=== PATIENT | male | born 1950 | race Caucasian/White ===

== ENCOUNTER → 2017-04-21 | Outpatient (CLI) | payer MEDICARE ==
[~2017-04-21] MED LIST: ACET-66 PO; ASPI-1197 PO; ATOR10TA PO; CLON0.5T PO; LISINOPRIL PO; MULTIVITAMIN PO; PANT40TA25 PO; TAMS-1 PO; ZOLOFT PO
== END | disposition home or self-care (01) ==
LOC: RAH 14:51
PROVIDERS: ATTEND Internal Medicine
DX: Z01.811 Encounter for preprocedural respiratory examination (principal); I10 Essential (primary) hypertension
CPT/HCPCS: 71046

== ENCOUNTER → 2017-12-01 | Outpatient (CLI) | payer MEDICARE | END | disposition home or self-care (01) | LOC: RAH 15:53 | PROVIDERS: ATTEND Internal Medicine | DX: R22.41 Localized swelling, mass and lump, right lower limb (principal) | CPT/HCPCS: 93971 ==

== ENCOUNTER → 2018-04-16 | Outpatient (CLI) | payer MEDICARE ==
[~2018-04-16] MED LIST changes: -ACET-66 PO; -CLON0.5T PO; +GABA-533 PO; +LEVO5TAB29 PO; +TRAM50TA4 PO
== END | disposition home or self-care (01) ==
LOC: RAH 10:01
PROVIDERS: ATTEND Neurological Surgery
DX: M47.812 Spondylosis without myelopathy or radiculopathy, cervical region (principal); M43.22 Fusion of spine, cervical region
CPT/HCPCS: 72040

== ENCOUNTER → 2018-11-06 | Outpatient (CLI) | payer MEDICARE | END | disposition home or self-care (01) | LOC: RAH 14:59 | PROVIDERS: ATTEND Physical Medicine & Rehabilitation | DX: M54.2 Cervicalgia (principal) | CPT/HCPCS: 72141 ==

== ENCOUNTER → 2019-06-26 | Outpatient (CLI) | payer MEDICARE | END | disposition home or self-care (01) | LOC: RAH 14:38 | PROVIDERS: ATTEND Physical Medicine & Rehabilitation | DX: M16.0 Bilateral primary osteoarthritis of hip (principal) | CPT/HCPCS: 73521 ==

== ENCOUNTER → 2022-01-19 | Outpatient (CLI) | payer MEDICARE ==
[~2022-01-19] MED LIST changes: -PANT40TA25 PO; +PANT40TA54 PO
== END | disposition home or self-care (01) ==
LOC: RAH 14:32
PROVIDERS: ATTEND Physician Assistant
DX: M16.12 Unilateral primary osteoarthritis, left hip (principal); M25.552 Pain in left hip
CPT/HCPCS: 73502

== ENCOUNTER → 2023-02-02 | Outpatient (CLI) | payer MEDICARE ==
[~2023-02-02] MED LIST changes: -GABA-533 PO; +GABA-534 PO; +LIDOCAINE HCL 4% LTA SOL 4 ML VIAL TP ONE
== END | disposition home or self-care (01) ==
LOC: WHH 09:36
PROVIDERS: ATTEND Nurse Practitioner Family
DX: R21 Rash and other nonspecific skin eruption (principal); L30.9 Dermatitis, unspecified; I10 Essential (primary) hypertension; J44.9 Chronic obstructive pulmonary disease, unspecified; I48.0 Paroxysmal atrial fibrillation; Z85.46 Personal history of malignant neoplasm of prostate; Z90.49 Acquired absence of other specified parts of digestive tract; Z87.891 Personal history of nicotine dependence
CPT/HCPCS: G0463

== ENCOUNTER → 2023-02-09 | Outpatient (CLI) | payer MEDICARE ==
[~2023-02-09] MED LIST changes: -LIDOCAINE HCL 4% LTA SOL 4 ML VIAL TP ONE
== END | disposition home or self-care (01) ==
LOC: WHH 08:57
PROVIDERS: ATTEND Nurse Practitioner Family
DX: R21 Rash and other nonspecific skin eruption (principal); L30.9 Dermatitis, unspecified; I10 Essential (primary) hypertension; J44.9 Chronic obstructive pulmonary disease, unspecified; I48.0 Paroxysmal atrial fibrillation; Z85.46 Personal history of malignant neoplasm of prostate; Z90.49 Acquired absence of other specified parts of digestive tract; Z87.891 Personal history of nicotine dependence; Z79.899 Other long term (current) drug therapy
CPT/HCPCS: G0463

== ENCOUNTER 2023-02-16 09:26 | Outpatient (CLI) | payer MEDICARE | END 2023-02-16 13:53 | disposition home or self-care (01) | LOC: WHH 09:26 | PROVIDERS: ATTEND Nurse Practitioner Family | DX: R21 Rash and other nonspecific skin eruption (principal); I10 Essential (primary) hypertension; I48.0 Paroxysmal atrial fibrillation; C61 Malignant neoplasm of prostate; J44.9 Chronic obstructive pulmonary disease, unspecified; Z90.49 Acquired absence of other specified parts of digestive tract; Z87.891 Personal history of nicotine dependence; Z79.899 Other long term (current) drug therapy | CPT/HCPCS: G0463 ==

== ENCOUNTER → 2023-09-11 | Outpatient (CLI) | payer MEDICARE ==
[~2023-09-11] MED LIST changes: +IOHEXOL 350 MG/ML 100ML INFUS..BTL IV ONE
== END | disposition home or self-care (01) ==
LOC: RAH 11:06
PROVIDERS: ATTEND Internal Medicine Cardiovascular Disease
DX: R06.02 Shortness of breath (principal); M47.815 Spondylosis without myelopathy or radiculopathy, thoracolumbar region
CPT/HCPCS: 75574; Q9967

== ENCOUNTER → 2023-12-29 | Outpatient (CLI) | payer MEDICARE ==
[~2023-12-29] MED LIST changes: -IOHEXOL 350 MG/ML 100ML INFUS..BTL IV ONE
--- NOTE | 2023-12-29 14:17 | HMCIMG ---
HIP UNILAT 2-3VW LEFT HISTORY: Left hip pain COMPARISON: 01/19/2022 TECHNIQUE: 3 images of left hip were obtained. FINDINGS: Bilateral hip joint space narrowing is seen. Vascular calcifications are seen. There is no acute displaced fracture or dislocation. Degenerative changes are seen. IMPRESSION: 1. Findings as described above.
--- NOTE | 2023-12-29 14:18 | HMCIMG ---
LUMBAR SPINE 2-3VWS HISTORY: Low back pain COMPARISON: None FINDINGS: 4 images of lumbar spine were obtained. Disc space narrowings are seen at L1-2, L2-3, L4-5 and L5-S1 levels. There is straightening of normal lordotic curvature which may be related to muscle spasm or positioning. No loss of vertebral height is seen. No fracture or dislocation is seen. Degenerative changes are seen. IMPRESSION: 1. No fracture is seen. DJD.
== END | disposition home or self-care (01) ==
LOC: RAH 11:27
PROVIDERS: ATTEND Physician Assistant
DX: M16.12 Unilateral primary osteoarthritis, left hip (principal); M47.816 Spondylosis without myelopathy or radiculopathy, lumbar region; M48.061 Spinal stenosis, lumbar region without neurogenic claudication; M25.552 Pain in left hip
CPT/HCPCS: 72100; 73502

== ENCOUNTER 2024-11-13 06:56 | Inpatient (IN) | payer MEDICARE ==
[2024-11-12 10:19] LABS: IMMATURE GRANULOCYTE ABSOLUTE 0.02 K/uL (0-1); NUCLEATED RED BLOOD CELLS 0.0 % (0.0-0.19); PLATELET COUNT (AUTO) 207 K/uL (130-400); RED BLOOD CELL COUNT(AUTO) 4.13 MIL/uL (4.50-6.20); RED CELL DISTRIBUTION WIDTH 13.2 % (11.0-15.5); WHITE BLOOD COUNT (AUTO) 8.5 K/uL (4.8-10.8)
[2024-11-12 10:25] LABS: CREATININE 1.0 mg/dL (0.5-1.3); GLOMERULAR FILTR. RATE CALC 78.0 mL/min (>90); GLUCOSE,RANDOM 87.0 mg/dL (70-105); SODIUM SERUM 144.0 mmol/L (136-145); UREA NITROGEN, BLOOD 22.0 mg/dL (7-18)
[2024-11-12 10:28] LABS: INR 0.95 (0.85-1.15)
[2024-11-12 10:30] VITALS: BP 119/59; PULSE 72; RESP 18; TEMP 97.6
--- NOTE | 2024-11-12 10:50 | NUR ---
RE: IS INITIAL IS INITIAL TEACHING DONE BY RT ANSON DURING PREOP.
[~2024-11-13] VITALS: Ht 180.3 cm; Wt 63.0 kg
[2024-11-13] VITALS (20 sets, daily range): BP systolic 93–113; BP diastolic 45–58; PULSE 71–84; RESP 12–19; TEMP 96.8–97.9; O2SAT 96
[~2024-11-13 06:56] MED LIST changes: +AMLO2.5T4 PO; +APIX5TAB PO; -ASPI-1197 PO; -ATOR10TA PO; +BACL10TA PO; +FINA5TAB41 PO; +FLEC50TA3 PO; -GABA-534 PO; -LEVO5TAB29 PO; -LISINOPRIL PO; +METO25 PO; +MIRT-22 PO; -MULTIVITAMIN PO; +OMEP20CA12 PO; -PANT40TA54 PO; +ROSU5TAB51 PO; +SERT-440 PO; -TAMS-1 PO; +TERA2CAP4 PO; -TRAM50TA4 PO; -ZOLOFT PO
[2024-11-13] MEDS ORDERED: LIDOCAINE PF 100MG/5ML (2%) SYRINGE 5ML ONE (07:35)
[2024-11-13] MEDS ORDERED: SUCCINYLCHOLINE CHLORIDE 20 MG/ML 10 ML VIAL ONE (07:36)
[2024-11-13] MEDS ORDERED: NEOSTIGMINE METHYLSULFATE 1MG/ML IV ONE (07:36)
[2024-11-13] MEDS ORDERED: GLYCOPYRROLATE 0.2 MG/ML 5 ML VIAL ONE (07:36)
[2024-11-13] MEDS ORDERED: MIDAZOLAM HCL 1 MG/ML 2ML VIAL ONE (07:37)
[2024-11-13] MEDS ORDERED: PoTASSium chloRIDE 20MEQ ER 20 MEQ ERTAB PO PRN (08:00)
[2024-11-13] MEDS ORDERED: PoTASSium chl 10% ELIXIR 20MEQ 20 MEQ/15 ML UDCUP PO PRN (08:00)
[2024-11-13] MEDS ORDERED: HYDROcodone/APAP 5/325 1 TAB TABLET PO PRN (08:00)
[2024-11-13] MEDS ORDERED: FERROUS FUMARATE 324 MG TABLET PO PRN (08:00)
[2024-11-13] MEDS ORDERED: TRANEXAMIC ACID 1000MG/10ML ONE (08:02)
[2024-11-13] MEDS: LACTATED RINGERS 1000ML 1,000 ML IV ONE (08:09)
[2024-11-13] MEDS: SUGAMMADEX SODIUM 200 MG/2 ML VIAL IV ONE (08:18)
[2024-11-13] MEDS: FAMOTIDINE 20MG VIAL IV ONE (08:19)
[2024-11-13] MEDS ORDERED: ALBUMIN (HUMAN) 5% 500 ML IV ONE (08:31)
--- NOTE | 2024-11-13 10:20 | NUR ---
MARIA EUGENIA CM MET WITH PT AND HAILEY MAGDALENO THIS AFTERNOON, INITIAL ASSESSMENT DONE. PATIENT IS INDEPENDENT PRIOR TO SURGERY, LIVES AT HOME WITH HIS . AT HOME PATIENT HAS A SHOWER CHAIR, [place], BPM, GOES TO [facility] IN [place] AND [facility]. DENIES ANY OTHER EQUIPMENT/SERVICES. FEELS SAFE TO GO BACK HOME, STILL DRIVE, ABLE TO ASSIST WITH TRANSPORTATION AND NEEDS NECESSARY. DISCUSSED POSSIBLE HOME W/HH FOR PT VS SHORT TERM REHAB AT SNF PENDING MD RECOMMENDATIONS. PT AND AGREEABLE TO BOTH IF NEEDED, VERBALIZED IT MIGHT BE DIFFICULT FOR HER TO ASSIST PT AT HOME IF HE GOES HOME IF PT NEED WOULD LIKE FOR PT TO TRY SNF FOR REHAB, PT AGREEABLE W/. CONSENT SIGNED [facility] FOR [facility] HH/ANY IN [facility]. MARIA EUGENIA HOME W/HH VS SNF. CM TO CONTINUE TO FOLLOW UP. Addendum: 11/13/24 at 1434 by BOBBY BENOIT LVN CM Amended: Links added.
--- NOTE | 2024-11-13 11:23 | OP ---
Operative Note: DATE OF PROCEDURE: 11/13/24 SURGEON: JULISA DUFFY MD METAL FURNITURE ASSEMBLER: Janneth Zendejas ANESTHESIA: General and fascia iliaca block ANESTHESIOLOGIST/PRESS OPERATOR PRINTING: Geo Blanco PREOPERATIVE DIAGNOSIS: Left hip osteoarthritis POSTOPERATIVE DIAGNOSIS: Left hip osteoarthritis PROCEDURE: Left total hip arthroplasty ESTIMATED BLOOD LOSS: 150 cc INDICATIONS: 74-year-old male with left hip osteoarthritis failing conservative management. After discussion of the risks, benefits, and alternatives, the patient voluntarily agreed to undergo the aforementioned procedure. IMPLANTS: Moss and Nephew 54 mm R3 acetabular component with 6.5 mm screws x2 and central hole cover, 0 degree XLPE polyethylene liner, size 8 standard offset anthology stem with a 36 mm Oxinium +0 head DESCRIPTION OF PROCEDURE: Patient was properly identified in the preoperative holding area. Surgical site marking was verified and surgery consent reviewed. The patient was then taken to the operating room and placed in supine position on the OR table. After induction of general anesthesia, preoperative antibiotics were given. The patient was then transitioned in the lateral decubitus position with the left side up. All bony prominences were well-padded. Left lower extremity was then prepped and draped in the usual sterile fashion. Surgical time out was done verifying correct surgery, side, site, and location to be performed. We then began the procedure by making approximately 15 cm long incision centered over the greater trochanter. Here we came sharply through skin down to the fascia. Hemostasis was then achieved using Bovie electrocautery. We then incised fascia in line with the skin incision and finger split the tensor muscle proximally. We then placed our Charnley retractor. At this point we identified the vastus ridge and began elevating the full-thickness soft tissue flap off of the vastus ridge, splitting the vastus lateralis and gluteus muscles as necessary. We then proceeded to externally rotate the femur while making this flap. We resected part of the anterior capsule. The femoral head and neck was then delivered into view. We then dislocated the hip and performed a femoral neck cut approximately half a fingerbreadth proximal to the lesser trochanter. We then placed our retractors around the superior and anterior portion of the acetabulum and began to remove the labrum circumferentially. We then began reaming the acetabulum where we reamed up to a size 53 ensuring appropriate anteversion and abduction. We then proceeded to trial with the size 54 acetabular component and this appeared to sit well. We opened our size 54 acetabular component and after irrigating out the wound malleted this into place. It appeared to have good press-fit however we elected to place 2 of the 6.5 screws as well. We drilled and filled the screws in standard fashion in the posterior superior portion of the cup. We then placed the manhole cover on the center of the cup. The wound was thoroughly irrigated out further and we placed the acetabular liner and impacted this in place in standard fashion. We then proceeded to reposition our retractors to elevate the proximal femur out of the wound. We then used the box chisel and canal finder to began preparing the femoral side and sequentially broached up to the aforementioned size stem. Once we felt we had good fit, fill, and control of the femur with the stem in place we then used our trial head component and reduce the hip. Upon reduction, we had appropriate soft tissue tensioning, limb length and stable range of motion. We therefore dislocated the hip once more removed our trial components thoroughly irrigated the out the wound and placed our final components in standard fashion. The hip was then reduced with the final components in place. It was found to be stable through range of motion with appropriate soft tissue tensioning and appropriate limb length. At this point we placed a bump under the knee and the foot on the male with a stack of towels to allow for internal rotation. We repaired the abductors back to the greater trochanter using #5 Ethibond. We then repaired the rent in the vastus lateralis and gluteus muscles using #1 Vicryl in a running fashion. We removed our Charnley retractor and began to repair the IT band using #1 Vicryl in interrupted [id number] fashion. At this point we began to close her subcutaneous tissue using 2-0 Vicryl. Running 3-0 Monocryl in subcuticular fashion with Dermabond placed over this for the skin. Island barrier dressing was then applied. Patient was returned to supine position, awakened from anesthesia, and taken to the recovery room in stable condition. JULISA DUFFY MD Nov 13, 2024 11:23
--- NOTE | 2024-11-13 13:00 | HMCIMG ---
EXAM: CR left Hip with AP pelvis, 3 View. CLINICAL HISTORY: S/P HIP SURGERY; COMPARING RT vs LT COMPARISON: None provided. FINDINGS: BONES: No definite evidence for hardware failure or loosening.Total left hip arthroplasty. Alignment of the prosthetic components within normal limits. No definite evidence for hardware failure or loosening. No periprosthetic fractures. No acute fractures about the pelvis or hips. JOINTS: Osteoarthritic changes of the right hip with acetabular joint space narrowing and mild increase sclerosis upon the superior lateral aspect of the acetabulum. Total left hip arthroplasty. SOFT TISSUES: The soft tissues are unremarkable. IMPRESSION: Left hip arthroplasty appears stable. Negative for fracture or other acute bony abnormality. /[place]
--- NOTE | 2024-11-13 13:05 | NUR ---
RECEIVED PATIENT INTO ROOM 405 , AWAKE ALERT AND ORIENTED, DRESSING NOTED TO LT HIP OPTIFOAM DRY AND INTACT IC PACK APPLIED LEFT LOWER EXTREMITY WITH PEDAL PULSE PALPABLE ,ABLE TO WIGGLE TOES SENSATION TO FOOT INTACT. SCD APPLIED TO LOWER EXTREMITIES, AT BEDSIDE, REEDUCATED PATIENT ON USE OF INCENTIVE SPIROMETRY ABLE TO DRAW 1500 AT THIS TIME IN IS.INSTRUCTED PHYSICAL THERAPY WILL BE HERE SHORTLY TO ASSIST OUT OF BED .PATIENT DENIES PAIN AT THIS TIME.INFORMED PAIN MEDICATION IS AVAILABLE NEEDED,PATIENT VERBALIZED UNDERSTANDING.
--- NOTE | 2024-11-13 13:52 | NUR ---
PATIENT NOTED WITH BP 86/49 WITH PAIN RATED AT 8/10. INFORMED SANNA, NURSE. CANNOT GIVE PAIN MEDS AT THIS TIME DUE TO BP CONCERNS. WILL BOLUS WITH NS. PT TO CHECK BACK. Addendum: 11/13/24 at 1353 by JORDEN HALLMAN PT Amended: Links added.
[2024-11-13] MEDS: 0.9%NACL 1000ML 1,000 ML IV SCH (14:21)
[2024-11-13] MEDS ORDERED: BACLOFEN 10 MG TABLET PO PRN (15:00)
--- NOTE | 2024-11-13 15:50 | NUR ---
ORTHO COORDINATOR: TEACHING REGARDING DVT AND PNEUMONIA PREVENTION, PAIN EXPECTATIONS AND PAIN MANAGEMENT. PATIENT IN BED, SPOUSE AT BEDSIDE. B SCD SLEEVES IN PLACE AND FUNCTIONING. INCENTIVE SPIROMETER AT BEDSIDE. PATIENT VERBALIZED PROPER FREQUENCY OF INCENTIVE SPIROMETER USE. PATIENT RETURN DEMONSTRATED PROPER FOOT FLEXION AND EXTENSION EXERCISES. REVIEWED PAIN MANAGEMENT STRATEGY. PATIENT INSTRUCTED TO PERFORM SELF PAIN EVALUATIONS AT THE MINIMUM EVERY FOUR HOURS. PATIENT INTENDS TO DISCHARGE HOME WITH HOME HEALTH PHYSICAL THERAPY, SPOUSE WOULD LIKE TO DISCUSS REHAB, SHE HAS HAD TWO SHOULDER SURGERIES AND IS CURRENTLY IN A BOOT ON THE LEFT LEG. DIFFERENCES BETWEEN OPTIONS DISCUSSED. REVIEWED CRITERIA TO DISCHARGE FROM HOSPITAL. SET EXPECTATION FOR PATIENT TO SHOWER TOMORROW, RATIONALE PROVIDED. PATIENT AND SPOUSE VERBALIZED UNDERSTANDING TO ALL INSTRUCTIONS. NO ADDITIONAL QUESTIONS OR CONCERNS AT THIS TIME. PATIENT PAIN HAS BEEN ADDRESSED BY PRIMARY NURSE. ICE PACKS PLACED TO SURGICAL SITE.
--- NOTE | 2024-11-13 19:30 | NUR ---
assessment/teaching patient awake,alert, ox3, no family at bedside, encourage deep breathing exercises and is as previously done with maximum volume inspiration of 2000, ivf infusing well, left hip optifoam d/i, ble scds in place, teach patient plan of care, pain management and expected outcome, patient verbalizes understanding via teach back
[2024-11-13] MEDS: HYDROcodone/APAP 5/325 1 TAB TABLET PO PRN (20:49)
[2024-11-13] MEDS: FLECAINIDE ACETATE 25 MG PO SCH (20:53)
[2024-11-13] MEDS: TERAZOSIN 2 MG CAPSULE PO SCH (20:53)
[2024-11-13] MEDS: amLODIPine 2.5 MG TAB PO SCH (20:54)
[2024-11-14 00:52] VITALS: BP 106/50; PULSE 78; RESP 18; TEMP 98
[2024-11-14 03:50] VITALS: BP 99/52; PULSE 82; RESP 17; TEMP 97.6
[2024-11-14 04:40] LABS: NUCLEATED RED BLOOD CELLS 0.0 % (0.0-0.19); PLATELET COUNT (AUTO) 181.0 K/uL (130-400); RED BLOOD CELL COUNT(AUTO) 3.11 MIL/uL (4.50-6.20); RED CELL DISTRIBUTION WIDTH 13.1 % (11.0-15.5); WHITE BLOOD COUNT (AUTO) 14.1 K/uL (4.8-10.8)
[2024-11-14 04:50] LABS: CREATININE 0.9 mg/dL (0.5-1.3); GLOMERULAR FILTR. RATE CALC 89.0 mL/min (>90); GLUCOSE,RANDOM 133.0 mg/dL (70-105); SODIUM SERUM 144.0 mmol/L (136-145); UREA NITROGEN, BLOOD 18.0 mg/dL (7-18)
[2024-11-14 08:00] VITALS: BP 119/54; PULSE 90; RESP 18; TEMP 98.1
--- NOTE | 2024-11-14 08:00 | NUR ---
OOB PATIENT ASSISTED UP TO BATHROOM WITH USE OF WALKER STEADY GAIT NOTED PATIENT VOIDED AND ASSISTED BACK TO CHAIR FOR BREAKFAST, REINSTRUCTED TO CONTINUE TO USE INCENTIVE SPIROMETRY.
--- NOTE | 2024-11-14 08:11 | PN ---
Ortho postop day one. This morning the patient is already out of bed seated in the chair. He is complaining of some slight numbness to the inner part of his thigh ring judging from the groin down to just past his knee. He is able though to actively extend and flex his knee dorsiflex and plantar flex foot and wiggle toes upon command. I have discussed with the patient that this is likely still due to the block and to continue to observe. He has been able to to stand and walk to the restroom without any difficulty. I have asked for him to stop rubbing on the site as he can irritate his skin. Patient states that he feels funny. We discussed gabapentin for this condition but he refuses states that he can not tolerate the side effects. His is present at the bedside she is still concerned that she will not be able to handle him at home and would prefer that case management continue to pursue skilled nurse facility. Vital signs have been stable. He is afebrile. Laboratory results reviewed. Hemoglobin hematocrit low we will continue to observe treat per protocol as necessary. Voiding on his own without difficulty although complains that he does not like that the nursing staff have to accompany him to the restroom. He is not passing gas yet. Reinforced incentive spirometry. Dressing is intact. PT pending this morning. Assessment: Status post left total hip arthroplasty. Acute postoperative blood loss anemia. Plan: Continue Dr. Charles's total hip arthroplasty protocol and discharge planning. Acute postoperative blood loss anemia addressed with the protocol as necessary Vitals/Labs Vital Signs Date Time Temp Pulse Resp B/P (MAP) Pulse Ox O2 Delivery O2 Flow Rate FiO2 11/14/24 03:50 97.5 82 17 99/52 96 Room Air 11/13/24 20:00 0 21 Laboratory Tests 11/14/24 04:24 Medications Current Medications Cefazolin Sodium 2 gm STK-MED ONCE .ROUTE; Start 11/13/24 at 07:02; Stop 11/13/24 at 07:02; Status DC Lactated Ringer's 1,000 ml @ As Directed STK-MED ONCE IV Last administered on 11/13/24at 08:09; Start 11/13/24 at 07:02; Stop 11/13/24 at 07:02; Status DC Lidocaine HCl 100 mg STK-MED ONCE .ROUTE; Start 11/13/24 at 07:35; Stop 11/13/24 at 07:36; Status DC Ondansetron HCl 4 mg STK-MED ONCE .ROUTE; Start 11/13/24 at 07:35; Stop 11/13/24 at 07:36; Status DC Dexamethasone Sodium Phosphate 10 mg STK-MED ONCE .ROUTE; Start 11/13/24 at 07:35; Stop 11/13/24 at 07:36; Status DC Succinylcholine Chloride 200 mg STK-MED ONCE .ROUTE; Start 11/13/24 at 07:36; Stop 11/13/24 at 07:36; Status DC Glycopyrrolate 1 mg STK-MED ONCE .ROUTE; Start 11/13/24 at 07:36; Stop 11/13/24 at 07:36; Status DC Propofol 200 mg STK-MED ONCE IV; Start 11/13/24 at 07:36; Stop 11/13/24 at 07:36; Status DC Neostigmine Methylsulfate 10 mg STK-MED ONCE IV; Start 11/13/24 at 07:36; Stop 11/13/24 at 07:36; Status DC Rocuronium [place] 50 mg STK-MED ONCE .ROUTE; Start 11/13/24 at 07:36; Stop 11/13/24 at 07:36; Status DC Fentanyl Citrate 100 mcg STK-MED ONCE .ROUTE; Start 11/13/24 at 07:36; Stop 11/13/24 at 07:36; Status DC Midazolam HCl 2 mg STK-MED ONCE .ROUTE; Start 11/13/24 at 07:37; Stop 11/13/24 at 07:37; Status DC Ephedrine Sulfate 50 mg STK-MED ONCE .ROUTE; Start 11/13/24 at 07:40; Stop 11/13/24 at 07:40; Status DC Sodium Chloride 1,000 ml @ 100 mls/hr Q10H IV Last administered on 11/14/24at 01:41; Start 11/13/24 at 08:00; Stop 11/14/24 at 07:59; Status DC Polyethylene Glycol 17 gm DAILY PO; Start 11/13/24 at 09:00; Stop 12/13/24 at 08:59 Bisacodyl 10 mg DAILY PRN RC; Start 11/16/24 at 08:00; Stop 12/16/24 at 07:59 Ketorolac Tromethamine 15 mg Q6H PRN IV; Start 11/13/24 at 08:00; Stop 11/18/24 at 07:59 Ferrous Fumarate 324 mg DAILY PRN PO; Start 11/13/24 at 08:00; Stop 12/13/24 at 07:59 Calcium Carbonate 500 mg Q12H PRN PO; Start 11/13/24 at 08:00; Stop 12/13/24 at 07:59 Ondansetron HCl 4 mg Q6H PRN IVP; Start 11/13/24 at 08:00; Stop 12/13/24 at 07:59 Cefazolin Sodium 2 gm Q8H IVP; Start 11/13/24 at 13:00; Stop 11/13/24 at 18:11; Status DC Gabapentin 100 mg TID PO; Start 11/13/24 at 09:00; Stop 12/13/24 at 08:59 Cyclobenzaprine HCl 5 mg Q8H PRN PO; Start 11/13/24 at 08:00; Stop 12/13/24 at 07:59 Docusate Sodium 100 mg BID PO Last administered on 11/13/24at 20:48; Start 11/13/24 at 09:00; Stop 12/13/24 at 08:59 Ketorolac Tromethamine 15 mg Q8H IV Last administered on 11/14/24at 00:13; Start 11/13/24 at 08:00; Stop 11/14/24 at 00:01; Status DC Aspirin 325 mg DAILY PO; Start 11/14/24 at 09:00; Stop 12/14/24 at 08:59 Potassium Chloride 100 ml @ 100 mls/hr AD PRN IV; Start 11/13/24 at 08:00; Stop 12/13/24 at 07:59 Potassium Chloride 20 meq AD PRN PO; Start 11/13/24 at 08:00; Stop 12/13/24 at 07:59 Potassium Chloride 20 meq AD PRN PO; Start 11/13/24 at 08:00; Stop 12/13/24 at 07:59 Tramadol HCl 50 mg Q6H PRN PO; Start 11/13/24 at 08:00; Stop 11/18/24 at 07:59 Acetaminophen/ Hydrocodone Bitart Q4H PRN PO; Start 11/13/24 at 08:00; Stop 11/13/24 at 08:01; Status DC Acetaminophen/ Hydrocodone Bitart 1 tab Q4H PRN PO Last administered on 11/13/24at 20:49; Start 11/13/24 at 08:30; Stop 11/18/24 at 08:29 Acetaminophen/ Hydrocodone Bitart 2 tab Q4H PRN PO; Start 11/13/24 at 08:30; Stop 11/18/24 at 08:29 Tranexamic Acid 1,000 mg STK-MED ONCE .ROUTE; Start 11/13/24 at 08:02; Stop 11/13/24 at 08:02; Status DC Cefazolin Sodium 1 gm STK-MED ONCE .ROUTE; Start 11/13/24 at 08:02; Stop 11/13/24 at 08:02; Status DC Acetaminophen 100 ml @ As Directed STK-MED ONCE .ROUTE; Start 11/13/24 at 08:19; Stop 11/13/24 at 08:19; Status DC Famotidine 20 mg STK-MED ONCE IV; Start 11/13/24 at 08:19; Stop 11/13/24 at 08:19; Status DC Ropivacaine 150 mg STK-MED ONCE .ROUTE; Start 11/13/24 at 08:31; Stop 11/13/24 at 08:31; Status DC Albumin Human 500 ml @ As Directed STK-MED ONCE IV; Start 11/13/24 at 08:31; Stop 11/13/24 at 08:31; Status DC Ketamine HCl 50 mg STK-MED ONCE .ROUTE; Start 11/13/24 at 08:34; Stop 11/13/24 at 08:34; Status DC Rocuronium [place] 50 mg STK-MED ONCE .ROUTE; Start 11/13/24 at 09:35; Stop 11/13/24 at 09:35; Status DC Cefazolin Sodium 1 gm STK-MED ONCE IRRIG Last administered on 11/13/24at 08:48; Start 11/13/24 at 08:48; Stop 11/13/24 at 10:11; Status DC Cefazolin Sodium 1 gm STK-MED ONCE IRRIG Last administered on 11/13/24at 08:48; Start 11/13/24 at 08:48; Stop 11/13/24 at 10:11; Status DC Cefazolin Sodium 1 gm STK-MED ONCE IRRIG Last administered on 11/13/24at 08:48; Start 11/13/24 at 08:48; Stop 11/13/24 at 10:11; Status DC Cefazolin Sodium 2 gm STK-MED ONCE IVPB Last administered on 11/13/24at 09:12; Start 11/13/24 at 09:12; Stop 11/13/24 at 10:11; Status DC Phenylephrine HCl 10 mg STK-MED ONCE IV; Start 11/13/24 at 10:55; Stop 11/13/24 at 10:55; Status DC Fentanyl Citrate 100 mcg STK-MED ONCE .ROUTE Last administered on 11/13/24at 12:22; Start 11/13/24 at 12:19; Stop 11/13/24 at 12:19; Status DC Amlodipine Besylate 2.5 mg BID PO; Start 11/13/24 at 21:00; Stop 12/13/24 at 20:59 Baclofen 10 mg BID PRN PO; Start 11/13/24 at 15:00; Stop 12/13/24 at 14:59 Finasteride 5 mg HS PO Last administered on 11/13/24at 20:48; Start 11/13/24 at 21:00; Stop 12/13/24 at 20:59 Metoprolol Tartrate 25 mg BID PO; Start 11/13/24 at 21:00; Stop 12/13/24 at 20:59 Mirtazapine 15 mg HS PO; Start 11/13/24 at 21:00; Stop 12/13/24 at 20:59 Terazosin HCl 4 mg HS PO; Start 11/13/24 at 21:00; Stop 12/13/24 at 20:59 Home Med BID PO; Start 11/13/24 at 21:00; Stop 12/13/24 at 20:59 Pantoprazole Sodium 20 mg DAILY PO; Start 11/14/24 at 09:00; Stop 12/14/24 at 08:59 Atorvastatin Calcium 20 mg HS PO Last administered on 11/13/24at 20:48; Start 11/13/24 at 21:00; Stop 12/13/24 at 20:59 Sertraline HCl 100 mg DAILY PO; Start 11/14/24 at 09:00; Stop 12/14/24 at 08:59 Cefazolin Sodium 2 gm Q8H IVP Last administered on 11/14/24at 01:41; Start 11/13/24 at 18:30; Stop 11/14/24 at 02:31; Status DC ALFONSO HOLLIS PARTS IDENTIFICATION TECHNICIAN Nov 14, 2024 08:11
[2024-11-14] MEDS: ASPIRIN 325MG EC TAB PO SCH (09:46)
[2024-11-14 12:00] VITALS: BP 101/56; PULSE 83; RESP 18; TEMP 98.4
[2024-11-14] MEDS: HYDROcodone/APAP 5/325 1 TAB TABLET PO PRN (13:17)
--- NOTE | 2024-11-14 14:45 | NUR ---
ORTHO COORDINATOR: REINFORCED TEACHING. PATIENT IN BED, SPOUSE AT BEDSIDE. ICE PACK TO SURGICAL SITE. B SCD SLEEVES INTACT AND FUNCTIONING. PATIENT REPORTS PAIN CONTROLLED, VERBALIZED FREQUENCY OF USE OF INCENTIVE SPIROMETER. PATIENT REPORTS BOWEL MOVEMENT TODAY. REINFORCED PAIN MANAGEMENT STRATEGY. SET EXPECTATION FOR PATIENT TO SHOWER TODAY. PATIENT AND VERBALIZED UNDERSTANDING.
[2024-11-14 16:30] VITALS: BP 113/60; PULSE 74; RESP 16; TEMP 98
[2024-11-14 20:00] VITALS: BP 116/57; PULSE 78; RESP 16; TEMP 98.3
[2024-11-14] MEDS: CALCIUM CARB 500MG PO PRN (20:03)
[2024-11-15] VITALS (9 sets, daily range): BP systolic 100–139; BP diastolic 49–76; PULSE 72–96; RESP 16–18; TEMP 98–98.8; O2SAT 94–95
--- NOTE | 2024-11-15 16:20 | HMCIMG ---
Intraoperative fluoroscopic assessment of the left hip INDICATION: Left hip surgery COMPARISON: None available Fluoroscopy time: 17 seconds. FINDINGS: 6 images demonstrate patient undergoing total left hip arthroplasty. IMPRESSION: Details of the finding in the operative notes.
[2024-11-15] MEDS: CYCLOBENZAPRINE HCL 10 MG TABLET PO PRN (21:00)
--- NOTE | 2024-11-16 01:28 | NUR ---
nurse note patient alert and oriented times 3. he is hard of hearing. plan of care discussed with him and he verbalized understanding. patient calls for assistance to the restroom to void. he uses the walker and has no issues. he has intermittent left hip pain relieved by pain medication. patient has slept about 6 hours tonight. scd's on, ice packs applied, call light within reach, bed alarm on, 2 side rails up. will continue to monitor patient.
[2024-11-16 03:29] VITALS: BP 120/62; PULSE 82; RESP 16; TEMP 98.7
--- NOTE | 2024-11-16 06:27 | NUR ---
CHAIR we took the patient to the toilet to have a bowel movement. he will shower and then sit on the chair today with a new ice pack and scd's on.
[2024-11-16 08:00] VITALS: BP 99/45; PULSE 80; RESP 18; TEMP 98.4
[2024-11-16 08:01] VITALS: O2SAT 97
--- NOTE | 2024-11-16 08:04 | NUR ---
NURSE NOTE HELD PT 0900 BP MEDS METOPROLOL AND NORVASC FOR REASSESSED BP OF 99/45. WILL CONTINUE TO MONITOR.
[2024-11-16 12:00] VITALS: BP 100/51; PULSE 76; RESP 16; TEMP 98
--- NOTE | 2024-11-16 13:21 | DS ---
Discharge Summary Hospital Course Summary: The patient was admitted to the hospital postoperatively on 11/13/2024 after undergoing left total hip arthroplasty. They did well with routine postoperative pain control. They worked well with physical therapy. They developed some acute blood loss anemia but remained asymptomatic. The hospital course was otherwise uncomplicated. They were subsequently able to be discharged on postoperative day 3 once discharge arrangements were made with correction facility in three midnight requirement was met. Zipper Lining Folder(s): none Procedure(s): Left total hip arthroplasty, 11/13/2024 Assessment/Plan: Hypotension today, blood pressure medication held, other vital signs stable and afebrile. A chair at the time of my visit tent finisher no acute distress, alert and oriented x3 Nonlabored breathing Left lower extremity: -surgical dressing clean dry and intact, removed and incision is clean dry and intact -no significant edema, no erythema or warmth. No palpable fluctuance -vascularly intact distally with dorsiflexion of the ankle ASSESSMENT: Status post left total hip arthroplasty doing well Asymptomatic acute blood loss anemia PLAN: Discharge instructions Discharge Instructions: Begin working with physical therapy at the facility. Remembered do not flex the hip more than 90 and do not cross midline at the knees or ankles for the 1st six weeks. If you are side sleeper place a pillow between the knees and ankles to prevent the legs from crossing. Dressing may be removed 11/16/2024 and left open to air. Showers ok allowing soap and water to run over the wound. Pat dry. Do not submerge wound in tub/pool. Do not apply ointments. Do not apply Betadine. Do not apply peroxide. Ice packs to decrease pain/swelling. Prescriptions have been sent to the pharmacy: *Tyler 5/325mg 1-2 tab every 6 hours as needed for severe pain. (please call for refills) Cyclobenzaprine 5mg 1 tab every 8 hours as needed for muscle spasm pain. Gabapentin 100mg 1 tab every 8 hours (may discontinue if drowsy). Colace 100mg 1 tab orally twice a day as needed for constipation. Resume your home dose of Eliquis to prevent blood clots. Follow up appointment scheduled on 12/05/2024 at 9:00 a.m. at [facility]. Home Medications: Reported Medications Metoprolol Tartrate (Lopressor) 25 Mg Tab, 25 MG PO BID, TAB 11/12/24 Mirtazapine (Mirtazapine) 15 Mg Tablet, 15 MG PO HS, TAB 11/12/24 Baclofen (Baclofen) 10 Mg Tablet, 10 MG PO BID PRN for MUSCLE SPASMS, TAB 11/12/24 Omeprazole (Omeprazole) 20 Mg Capsule.dr, 20 MG PO DAILY, CAP 11/12/24 Sertraline HCl (Sertraline HCl) 100 Mg Tablet, 100 MG PO DAILY, TAB 11/12/24 Finasteride (Finasteride) 5 Mg Tablet, 5 MG PO HS, TAB 11/12/24 Terazosin HCl (Terazosin HCl) 2 Mg Capsule, 4 MG PO HS, CAP 11/12/24 Rosuvastatin Calcium (Rosuvastatin Calcium) 5 Mg Tablet, 5 MG PO HS, TAB 11/12/24 Amlodipine Besylate (Amlodipine Besylate) 2.5 Mg Tablet, 2.5 MG PO BID, TAB 11/12/24 Flecainide Acetate (Flecainide Acetate) 50 Mg Tablet, 25 MG PO BID, TAB 11/12/24 Apixaban (Eliquis) 5 Mg Tablet, 5 MG PO BID, TAB 11/12/24 Discontinued Reported Medications Levocetirizine Dihydrochloride (Xyzal) 5 Mg Tablet, 5 MG PO DAILY, TAB 03/12/18 Gabapentin (Gabapentin) 400 Mg Capsule, 400 MG PO HS, CAP 03/12/18 Tramadol Hcl (Tramadol HCl) 50 Mg Tablet, 50 MG PO BID, TAB 03/12/18 [Multivitamin] No Conflict Check, 1 TAB PO DAILY 09/04/15 [Zoloft] No Conflict Check, 150 MG PO DAILY 09/04/15 Atorvastatin Calcium (Lipitor) 10 Mg Tablet, 10 MG PO DAILY, TAB 09/04/15 [Lisinopril] No Conflict Check, 7.5 MG PO DAILY 09/04/15 Aspirin (Aspirin) 81 Mg Tab.chew, 81 MG PO AM, TAB.CHEW 06/05/14 Tamsulosin HCl (Flomax) 0.4 Mg/Cap Cap.er.24h, 0.4 MG PO AM, CAPSULE. 06/05/14 Pantoprazole Sodium (Pantoprazole Sodium) 40 Mg Tablet.dr, 40 MG PO AM, TAB 06/05/14 JULISA DUFFY MD Nov 16, 2024 13:21
[2024-11-16] MEDS ORDERED: CYCL-309 PO (13:24)
[2024-11-16] MEDS ORDERED: HYDR-4060 PO (13:24)
[2024-11-16] MEDS ORDERED: GABA100C PO (13:24)
[2024-11-16] MEDS ORDERED: DOCU-116 PO (13:24)
--- NOTE | 2024-11-16 13:43 | NUR ---
discharge Gave pt discharge education regarding instructions. Pt verbalized understanding. Iv catheter removed and intact. Gave report to Hanna SABILLON at [facility]. Pt pending facility [facility] package pick up. Addendum: 11/16/24 at 1637 by RADHA SMYTH LVN LVN facility [facility] arrived for pt. taken down in wheelchair no further comments.
[2024-11-16 16:00] VITALS: BP 123/68; PULSE 90; RESP 17; TEMP 98.3
== END 2024-11-16 16:45 | DRG 470 ==
LOC: DAH 06:56 → DAHIP 06:57 → 4BH 12:53 → OBSVTOIN 14:17
PROVIDERS: ADMIT Student in an Organized Health Care Education/Training Program; ATTEND Student in an Organized Health Care Education/Training Program
PROC: 0SRB06A Replacement of Left Hip Joint with Oxidized Zirconium on Polyethylene Synthetic Substitute, Uncemented, Open Approach (ICD-10-PCS; principal; 2024-11-13 10:10)
DX: M16.12 Unilateral primary osteoarthritis, left hip (principal); D62 Acute posthemorrhagic anemia; I95.9 Hypotension, unspecified
CPT/HCPCS: 36415; 73503; 73521; 76000; 80048; 82040; 84134; 85025; 85027; 85610; 85730; 86140; 87641; C1776; G0378; J0330; J0690; J1100; J1885; J2003; J2250; J2371; J2405; J2704; J2710; J2795; J3010; J3490; J7030; J7120; P9045; A4213; A4215; A4216; A4221; A4222; A4223; A4649; A4663; A4930; A6254; J1308

== ENCOUNTER 2024-12-09 17:46 | Emergency (ER) | payer MEDICARE ==
[~2024-12-09] VITALS: Ht 180.3 cm; Wt 62.1 kg
[~2024-12-09 17:46] MED LIST changes: +CYCL-309 PO; +DOCU-116 PO; +GABA100C PO; +HYDR-4060 PO
[2024-12-09 18:36] LABS: IMMATURE GRANULOCYTE ABSOLUTE 0.10 K/uL (0-1); NUCLEATED RED BLOOD CELLS 0.0 % (0.0-0.19); PLATELET COUNT (AUTO) 399 K/uL (130-400); RED BLOOD CELL COUNT(AUTO) 3.84 MIL/uL (4.50-6.20); RED CELL DISTRIBUTION WIDTH 13.1 % (11.0-15.5); WHITE BLOOD COUNT (AUTO) 17.3 K/uL (4.8-10.8)
[2024-12-09 18:43] LABS: CREATININE 1.2 mg/dL (0.5-1.3); GLOMERULAR FILTR. RATE CALC 63.0 mL/min (>90); GLUCOSE,RANDOM 125.0 mg/dL (70-105); SODIUM SERUM 140.0 mmol/L (136-145); UREA NITROGEN, BLOOD 23.0 mg/dL (7-18)
--- NOTE | 2024-12-09 20:13 | NUR ---
NO BLADDER SCANNER AVAILABLE
[2024-12-09 20:17] LABS: APPEARANCE,URINE CLEAR (CLEAR); GLUCOSE, URINE (UA) NEGATIVE (NEGATIVE); LEUKOCYTE ESTERASE ,URINE NEGATIVE Leu/uL (NEGATIVE); NITRATE,URINE NEGATIVE (NEGATIVE); OCCULT BLOOD,URINE NEGATIVE (NEGATIVE)
[2024-12-09 20:19] LABS: ADD UA MICROSCOPIC YES; SQUAMOUS EPITHELIAL CELL,UR RARE /HPF (0-2)
[2024-12-09] MEDS ORDERED: IOHEXOL 350 MG/ML 100ML INFUS..BTL IV ONE (22:17)
--- NOTE | 2024-12-10 00:26 | HMCIMG ---
EXAM: CT Abdomen and Pelvis with IV contrast. CLINICAL HISTORY: Urinary retention. TECHNIQUE: Axial computed tomography images of the abdomen and pelvis with intravenous contrast. CONTRAST: Omnipaque 350, 100 cc. COMPARISON: None. FINDINGS: LUNG BASES: The lung bases appear clear, demonstrating mosaic attenuation and bibasilar streaky atelectasis. No pleural effusions are seen. LIVER: Unremarkable. GALLBLADDER AND BILE DUCTS: Surgically absent. No biliary ductal dilatation is evident. PANCREAS: Unremarkable. SPLEEN: Unremarkable. ADRENAL GLANDS: Unremarkable. KIDNEYS, URETERS, AND BLADDER: There are a few bilateral small non-obstructing renal calculi, the largest measuring 3 mm on the left side. There is no hydronephrosis, hydroureter, or ureteral calculus. On the delayed phase images, there is opacification of the renal collecting system and the urinary bladder. STOMACH AND BOWEL: The stomach is underdistended. There is a 6.2 x 4 cm duodenal diverticulum demonstrating an air fluid level. No evidence of bowel obstruction. There are fluid contents in the distal ileal loops and cecum. The descending colon is underdistended. There are multiple distal colonic diverticuli without acute diverticulitis. The rectum is distended with feces. APPENDIX: No acute appendicitis. PERITONEUM: No free fluid or free air. LYMPH NODES: No lymphadenopathy is evident. The urinary bladder is mildly distended with a Amaya's bulb in place. REPRODUCTIVE: Mild prostatomegaly. VASCULATURE: The aorta demonstrates atheromatous calcifications without an aneurysm. BONES: No aggressive appearing osseous lesion. No acute osseous pathology is evident. Multilevel thoracolumbar spondylosis. Left hip joint arthroplasty prosthesis is seen. SOFT TISSUE: There is non-specific subcutaneous fat standing in the left gluteal soft tissues. IMPRESSION: Colonic diverticulosis without acute diverticulitis. Large bowel loops are filled with fecal matter, predominantly in the rectum, a component of constipation. Bilaterally small nonobstructive renal calculi. Large duodenal diverticula. Mild prostatomegaly. /[place]
[2024-12-10] MEDS ORDERED: SULF1TAB42 PO (00:59)
[2024-12-10] MEDS: MAGNESIUM CITRATE 296 ML SOLUTION PO ONE (01:07)
--- NOTE | 2024-12-10 01:09 | ERN ---
General Chief Complaint: Urinary Retention Stated Complaint: URINARY RETENTION Time Seen by MD: 17:51 Time Seen by Midlevel: 17:51 Source: patient History of Present Illness Initial Comments 74 y/o male with a past medical history of urinary retention presenting to the emergency department for evaluation of urinary retention. Patient states he has been unable to urinate for the past 15 hours. Reports similar episodes in the past. He also reports constipation. He attempted an enema prior to arrival with little to no relief. Denies any other symptoms. Allergies: Coded Allergies: No Known Drug Allergies (Verified Allergy, 12/17/12) Home Meds Active Scripts Docusate Sodium (Colace) 100 Mg Capsule, 1 CAP PO BID for 30 Days, #60 CAP 0 Refills Prov:JULISA DUFFY MD 11/16/24 Hydrocodone/Acetaminophen (Hydrocodon-Acetaminophen 5-325) 5 Mg-325 Mg Tablet, 1-2 TAB PO Q6HPRN PRN for PAIN, #56 TAB 0 Refills Prov:JULISA DUFFY MD 11/16/24 Gabapentin (Neurontin) 100 Mg Capsule, 100 MG PO TID, #90 CAP 0 Refills Prov:JULISA DUFFY MD 11/16/24 Cyclobenzaprine HCl (Cyclobenzaprine HCl) 10 Mg Tablet, 5 MG PO Q8H PRN for MUSCLE SPASMS, #45 TAB 0 Refills Prov:JULISA DUFFY MD 11/16/24 Reported Medications Metoprolol Tartrate (Lopressor) 25 Mg Tab, 25 MG PO BID, TAB 11/12/24 Mirtazapine (Mirtazapine) 15 Mg Tablet, 15 MG PO HS, TAB 11/12/24 Baclofen (Baclofen) 10 Mg Tablet, 10 MG PO BID PRN for MUSCLE SPASMS, TAB 11/12/24 Omeprazole (Omeprazole) 20 Mg Capsule.dr, 20 MG PO DAILY, CAP 11/12/24 Sertraline HCl (Sertraline HCl) 100 Mg Tablet, 100 MG PO DAILY, TAB 11/12/24 Finasteride (Finasteride) 5 Mg Tablet, 5 MG PO HS, TAB 11/12/24 Terazosin HCl (Terazosin HCl) 2 Mg Capsule, 4 MG PO HS, CAP 11/12/24 Rosuvastatin Calcium (Rosuvastatin Calcium) 5 Mg Tablet, 5 MG PO HS, TAB 11/12/24 Amlodipine Besylate (Amlodipine Besylate) 2.5 Mg Tablet, 2.5 MG PO BID, TAB 11/12/24 Flecainide Acetate (Flecainide Acetate) 50 Mg Tablet, 25 MG PO BID, TAB 11/12/24 Apixaban (Eliquis) 5 Mg Tablet, 5 MG PO BID, TAB 11/12/24 Past Medical History Past Medical History: A-Fib, Heart Disease, Hypertension, Prostatitis Past Surgical History: Cholecystectomy Surgical History Other: HIP REPLACEMENT, NECK, BACK, HERNIA ROS Dictation CONSTITUTIONAL: Negative except for HPI HEAD/FACE: Negative except for HPI EENT: Negative except for HPI RESPIRATORY: Negative except for HPI GASTROINTESTINAL/ABDOMINAL: Negative except for HPI GENITOURINARY: Negative except for HPI MUSCULOSKELETAL: Negative except for HPI INTEGUMENTARY: Negative except for HPI NEUROLOGICAL/PSYCH: Negative except for HPI HEMATOLOGIC/LYMPHATIC: Negative except for HPI All Systems Negative, Except as noted above. 13 point review of systems assessed and all negative except for above. Physical Exam Physical Exam Dictation Vital Signs reviewed General Appearance: Alert, oriented x 3, no acute distress, well developed, nourished. Head and Face: non-traumatic. Eyes: PERRL, pink conjunctivas, eyelid no trauma, anterior chamber with arcus senilis. Ears: Pinnas intact and no signs of trauma or erythema ear canals clear and no discharge TM no erythema Nose: No discharge, no bleeding. Oropharynx: Mouth normal, tongue pink, pharynx clear,no erythema, tonsils no exudates, no abscesses noted, mucous membrane moist Neck: Supple, non-tender, no thyromegaly, no masses, no JVD, no bruits Breast:Deferred Chest:No tenderness, no crepitus, no paradoxical movement, no retractions Lungs:Clear, well-ventilated, symmetric, no rales, no wheezing, no rhonchi, no stridor, good breath sounds bilaterally Heart: Regular rate, regular rhythm, no murmur, no gallops Vascular: no peripheral edema, Abdomen: Soft, positive bowel sounds, nondistended, no guarding, nontender, no rebound, no masses no hepatomegaly, no splenomegaly, no Michel's sign, no hernias. Rectal: Deferred Genital: Deferred Neurological: Normal speech, motor function intact, sensory function intact Musculoskeletal: Neck nontender, full range of motion, back nontender, full range of motion, Extremities: nontender, full range of motion Skin: Color pink, dry, no turgor, no rash, no lacerations, no abrasions, no contusions. Lymphatic: Deferred Results Laboratory and Microbiology Lab and Micro Result Laboratory Tests Test 12/09/24 18:28 12/09/24 20:10 White Blood Count 17.3 K/uL (4.8-10.8) H Red Blood Count 3.84 MIL/uL (4.50-6.20) L Hemoglobin 11.8 g/dL (14.0-18.0) L Hematocrit 37.1 % (42-54) L Mean Corpuscular Volume 96.6 fL (79-99) Mean Corpuscular Hemoglobin 30.7 pg (27.0-33.0) Mean Corpuscular Hemoglobin Concent 31.8 g/dL (32.0-36.0) L Red Cell Distribution Width 13.1 % (11.0-15.5) Platelet Count 399 K/uL (130-400) Mean Platelet Volume 9.3 fL (7.5-10.5) Immature Granulocyte % (Auto) 0.6 % (0-1) Neutrophils (%) (Auto) 84.3 % (40.0-77.0) H Lymphocytes (%) (Auto) 8.8 % (21.0-51.0) L Monocytes (%) (Auto) 5.8 % (3.0-13.0) Eosinophils (%) (Auto) 0.1 % (0.0-8.0) Basophils (%) (Auto) 0.4 % (0.0-5.0) Neutrophils # (Auto) 14.6 K/uL (1.8-7.7) H Lymphocytes # (Auto) 1.5 K/uL (1.0-4.8) Monocytes # (Auto) 1.0 K/uL (0.1-1.0) Eosinophils # (Auto) 0.02 K/uL (0.00-0.70) Basophils # (Auto) 0.07 K/uL (0.00-0.20) Absolute Immature Granulocyte (auto 0.10 K/uL (0-1) Nucleated Red Blood Cells 0.0 % (0.0-0.19) White Cell Morphology Comment See comments Sodium Level 140 mmol/L (136-145) Potassium Level 3.8 mmol/L (3.5-5.1) Chloride Level 102 mmol/L (101-111) Carbon Dioxide Level 28 mmol/L (21-32) Blood Urea Nitrogen 23 mg/dL (7-18) H Creatinine 1.2 mg/dL (0.5-1.3) Glomerular Filtration Rate Calc 63 mL/min (>90) Random Glucose 125 mg/dL (70-105) H Total Calcium 9.1 mg/dL (8.5-10.1) Urine Color LIGHT-YELLOW (YELLOW) Urine Appearance CLEAR (CLEAR) Urine pH 6.5 (5.0-8.0) Urine Specific [place] 1.019 (1.001-1.031) Urine Protein NEGATIVE mg/dL (NEGATIVE) Urine Glucose (UA) NEGATIVE mg/dL (NEGATIVE) Urine Ketones NEGATIVE mg/dL (NEGATIVE) Urine Occult Blood NEGATIVE (NEGATIVE) Urine Nitrate NEGATIVE (NEGATIVE) Urine Bilirubin NEGATIVE mg/dL (NEGATIVE) Urine Urobilinogen 0.2 mg/dL (0.2-1.0) Urine Leukocyte Esterase NEGATIVE Lava/uL Urine RBC 2-5 /HPF (0-1) H Urine WBC 2-5 /HPF (0-1) H Urine Squamous Epithelial Cells RARE /HPF (0-2) Urine Bacteria RARE /HPF (None Seen) Labs Reviewed?: Yes MDM MDM: 74 y/o male with a past medical history of urinary retention presenting to the emergency department for evaluation of urinary retention. Patient states he has been unable to urinate for the past 15 hours. Reports similar episodes in the past. He also reports constipation. He attempted an enema prior to arrival with little to no relief. Denies any other symptoms. Physical examination patient has a mild suprapubic abdominal tenderness. A bladder scan was ordered but this facility does not have a bladder scan machine. A Amaya catheter was inserted with a about 200 cc of urine output. Abdominal workup was initiated. CBC shows leukocytosis with a left shift. Chemistries are stable. Normal renal function. Urinalysis does not show any evidence of infection. A CT scan of the abdomen/pelvis with contrast was performed which reveals an enlarged prostate and and large bowel loops filled with fecal matter predominantly in the rectum consistent with constipation. Urinalysis has a white blood cells in the urine we will treat for urinary tract infection. I gave the option to the patient regarding his Amaya catheter. He would like for it to be removed return if he has another episode of urinary retention. Patient was covered with a 1 g of ceftriaxone in the emergency department and will be discharged home Bactrim. He was also given magnesium citrate for his constipation. Differential diagnosis: Urinary retention, urinary tract infection, constipation There are no social concerns with this patient. Prescription drug management Prescriptions will include: Medical management and examination interpretation discussions were had by me with other qualified healthcare professionals as indicated for the patient's care. ED Course Orders Procedure Category Date Status Time Cbc With Differential LAB 12/09/24 Complete 17:57 Basic Metabolic Panel LAB 12/09/24 Complete 17:57 Urinalysis Profile LAB 12/09/24 Complete 17:57 Bladder Scan CPOE 12/09/24 Transmitted 17:57 Nurse Driven Amaya LOVE 12/09/24 In Process Removal Pro 17:57 Ct Abdomen/Pelvis CT 12/09/24 Resulted W/Contrast 20:50 Iohexol (Omnipaque) PHA 12/09/24 Complete 22:17 Current Medications Medications (Trade) Dose Ordered Sig/Jsoe Miguel Route PRN Reason Start Time Stop Time Status Last Admin Dose Admin Iohexol (Omnipaque) 35,000 mg STK-MED ONCE IV 12/09/24 22:17 12/09/24 22:17 DC Vital Signs Date Time Temp Pulse Resp B/P (MAP) Pulse Ox O2 Delivery O2 Flow Rate FiO2 12/09/24 23:28 98.4 95 18 123/47 96 Room Air* 0 21 12/09/24 21:52 99.1 18 98 Room Air* 0 21 12/09/24 20:20 99.1 87 18 137/59 97 Room Air* 0 21 12/09/24 17:51 98.2 63 18 99/66 94 Room Air 0 DX & DISP Disposition: Discharge Departure Impression: Primary Impression: Urinary retention Additional Impressions: Enlarged prostate, Constipation, Leukocytosis Condition: Stable Scripts Sulfamethoxazole/Trimethoprim (Bactrim Ds Tablet) 800 Mg-160 Mg Tablet 1 TAB PO BID for 7 Days, #14 TAB 0 Refills Prov: ROMI REEVES PAC 12/10/24 Referrals: ROSALINA DEL TORO MD (PCP) I have reviewed the case, and I agree with, Diagnosis and Plan I performed the substantive portion of the visit. I have reviewed and personally made and approve the management plan that is documented in the note by myself or the VIKKI. I acknowledge for responsibility for the patient's management plan. ROMI REEVES PAC Dec 10, 2024 01:09
[2024-12-10 01:37] VITALS: BP 128/52; PULSE 90; RESP 18; TEMP 98.5; O2SAT 98
== END 2024-12-10 02:00 | disposition home or self-care (01) ==
LOC: EDH 17:46
DX: R33.9 Retention of urine, unspecified (principal); N40.1 Benign prostatic hyperplasia with lower urinary tract symptoms; K59.00 Constipation, unspecified; D72.829 Elevated white blood cell count, unspecified; I11.9 Hypertensive heart disease without heart failure; Z79.01 Long term (current) use of anticoagulants; Z79.899 Other long term (current) drug therapy; Z90.49 Acquired absence of other specified parts of digestive tract; Z96.649 Presence of unspecified artificial hip joint
CPT/HCPCS: 99285; 74177; 80048; 85025; 81001; 36415; 51702; 96374; Q9967; J0696

== ENCOUNTER 2025-02-03 06:14 | Day surgery (SDC) | payer MEDICARE ==
[2025-02-03] VITALS (9 sets, daily range): BP systolic 95–129; BP diastolic 52–62; PULSE 61–67; RESP 14–18; TEMP 97–97.6
[~2025-02-03] VITALS: Ht 180.3 cm; Wt 62.6 kg
[~2025-02-03 06:14] MED LIST changes: +SULF1TAB42 PO
[2025-02-03] MEDS ORDERED: ACET-2743 PO (07:53)
[2025-02-03] MEDS ORDERED: 0.9%NACL 1000ML 1,000 ML IV ONE ×2 (09:37→09:39)
--- NOTE | 2025-02-03 10:23 | NUR ---
Full and complete discharge instructions given to Patient and Family both verbally and in writing. Tolerated fluids and voided in bathroom. PIV removed with catheter tip intact. Patient denies any pain or discomfort. W/C to POV with Family to home.
== END 2025-02-03 10:40 | disposition home or self-care (01) ==
LOC: DAH 06:14
PROVIDERS: ATTEND Student in an Organized Health Care Education/Training Program
DX: Z12.11 Encounter for screening for malignant neoplasm of colon (principal); K57.30 Diverticulosis of large intestine without perforation or abscess without bleeding; K64.9 Unspecified hemorrhoids; I10 Essential (primary) hypertension; N40.0 Benign prostatic hyperplasia without lower urinary tract symptoms; K21.9 Gastro-esophageal reflux disease without esophagitis; F41.9 Anxiety disorder, unspecified; I48.91 Unspecified atrial fibrillation; Z90.49 Acquired absence of other specified parts of digestive tract; Z86.0100 Personal history of colon polyps, unspecified; Z80.0 Family history of malignant neoplasm of digestive organs; Z88.1 Allergy status to other antibiotic agents; Z79.82 Long term (current) use of aspirin; Z79.899 Other long term (current) drug therapy; Z98.890 Other specified postprocedural states
CPT/HCPCS: J7030 ×3; J2704 ×3; A4620; G0105; A4215 ×2; A4223; A4657; A7002; A4222; A4221; A4663; A4606; 45378; J3490